=== PATIENT | male | born 1945 | race Caucasian/White ===

== ENCOUNTER 2017-01-30 08:59 | Outpatient (CLI) | payer MEDICARE, OTHER ==
[~2017-01-30] VITALS: Ht 182.9 cm; Wt 85.5 kg
[~2017-01-30 08:59] MED LIST: ADVIL200 MG PO; ALDACTONE25 MG PO; ALENDRONATE SOD70 MG PO; ASPIRIN LO-DOSE81 MG PO; CALCIUM CARBON600 MG PO; CEFPROZIL250 MG PO; CIPRO500 MG PO; COREG 3.1253.125 MG PO; CYMBALTA30 MG PO; DACOGEN50 MG IV; DELTASONE10 MG PO; DELTASONE5 MG PO; ELIQUIS2.5 MG PO; GABAPENTIN400 MG PO; HUMIBID LA (MU600 MG; HUMIBID LA (MU600 MG PO; I-CAPS WITH LU1 EACH PO; ICAPS AREDS SO1 EACH; ICAPS MV TABLE1 EACH PO; ICAPS TABLET1 EACH PO; IMDUR30 MG PO; LANOXIN (DIGI125 MCG PO; LASIX20 MG PO; LASIX40 MG PO; LIPITOR40 MG PO; LISINOPRIL2.5 MG PO; LOPRESSOR25 MG PO; MIRALAX17 GM PO; MUCINEX600 MG PO; MULTIPLE VITAM1 EACH PO; NEURONTIN100 MG; NEURONTIN400 MG PO; NORCO 5-325 TA1 EACH PO; PRAVACHOL40 MG PO; PRILOSEC20 MG PO; PROTONIX40 MG PO; PROVENTIL OR V6.7 GM INH; SYMBICORT 80-10.2 GM INH; THERAGRAN-M1 TAB PO; TOPROL XL 5050 MG PO; TYLENOL325 MG PO; ZYRTEC10 MG PO
== END 2017-01-30 17:10 | disposition disaster alternative care site (69) ==
LOC: GMIS 08:59 → GMSU 08:59 → GMIS 09:00
DX: C92.Z2 Other myeloid leukemia, in relapse (principal); D63.0 Anemia in neoplastic disease; L03.115 Cellulitis of right lower limb
CPT/HCPCS: J1200; J1642; J1940; J7050; P9040

== ENCOUNTER 2017-03-31 17:00 | Inpatient (IN) | payer MEDICARE, OTHER ==
[~2017-03-31] VITALS: Ht 182.9 cm; Wt 76.4 kg
--- NOTE | ~2017-03-31 | CON ---
PATIENT'S NAME: JANY OROPEZA [facility] AGE: 71 Y [address] ROOM: [id number] [place], [place] [address] [facility] ADMIT DATE: 03/31/2017 Consultation DISCHARGE DATE: FAMILY PHYSICIAN: Shaheen Atkinson ATTENDING PHYSICIAN: Miguel Brady REFERRING PHYSICIAN: DIOGENES CERON (GASTRO) HISTORY OF PRESENT ILLNESS: Dr. Estrada has requested that I provide an inpatient consultation on this 71- year-old male. I have specifically been asked to evaluate his complaint of left elbow pain and swelling. Difficulties with the left elbow commenced approximately 3 weeks ago when he slipped off the seat of a riding him manager and "skinned it." He states that this was a deep abrasion at the lateral aspect of his left elbow. He treated this himself and did well until the last 24 hours. The abrasion seemed to be healing well until the "scab came off" yesterday morning. Since then, his left elbow was felt progressively more "tight," swollen, tender, and warm. He states that there has been no trauma to the elbow subsequent of falling off the lawnmower 3 weeks ago. He denies distal numbness or paresthesia. He states that he had an IV in his left antecubital fossa region soon after being admitted to the hospital earlier this week. The left elbow IV became infiltrated, and his left forearm became "puffy" after that. He is presently admitted to the hospital for workup and treatment of chest pain. As per the patient's report (as well as that of his nurse), his chest pain appears to represent reflux rather than cardiac disease. The patient states that he is not presently on antibiotics (to the best of his knowledge). His nurse confirms this. ALLERGIES: ALLERGIC TO PENICILLIN. HE DENIES ANY OTHER TYPE OF ALLERGY TO MEDICINE. MEDICATIONS ON ADMISSION: 1. Prednisone. 2. Aspirin. 3. Spironolactone. 4. Eliquis. 5. Lipitor. 6. Lanoxin. 7. [place]. 8. Dacogen. 9. Cymbalta. 10. Lasix. 11. Imdur. 12. Lopressor. 13. Tylenol. PATIENT'S NAME: JANY OROPEZA [facility] AGE: 71 Y [address] ROOM: [id number] [place], [place] [address] LOCATION: [facility] ADMIT DATE: 03/31/2017 Consultation DISCHARGE DATE: FAMILY PHYSICIAN: Shaheen Atkinson ATTENDING PHYSICIAN: Miguel Brady 14. Aleve. 15. Glucophage. 16. Pennsaid. 17. Ranitidine. 18. Zaroxolyn. 19. Symbicort. 20. Nitrostat. PAST SURGICAL HISTORY: Includes right above-knee amputation. ACTIVE MEDICAL PROBLEMS: Include diabetes mellitus and peripheral vascular disease. PHYSICAL EXAMINATION: GENERAL: An alert, oriented, well-hydrated, well-nourished, pleasant, cooperative stoic gentleman, who is slightly diaphoretic. He is in no acute distress. Respiratory rate is 16. Respirations nonlabored. MUSCULOSKELETAL: Median, radial, and ulnar nerve, motor and sensory function are normal at the left hand. Radial pulse 2+. There is erythema, acute tenderness, considerable fluctuant swelling over the left olecranon. There is a 5 x 20 mm abrasion, which is healing well. This is anterior and lateral to the region of tenderness and fluctuance over the olecranon. There is no crepitation or pain with passive range of motion of the elbow. Left elbow range of motion is from a 10-degree flexion contracture to 130 degrees of flexion. Left elbow supination 70 degrees. Left elbow pronation 80 degrees. Again, there is no crepitation with range of motion of the left elbow. RADIOGRAPHS: I ordered an AP and lateral radiographs of the left elbow several hours ago. These have not yet been obtained. I am told that the x-ray electroencephalographic technician came to take the x-rays (because the nurse to whom I gave the verbal order for x-rays put the x-rays in a computer), however, the x-ray electroencephalographic technician would not take the x-rays given the fact that a verbal order for the x-rays had not been written in the chart. Thus, I have re-ordered the x-rays. However, I did not wait for the x-rays due to the fact that this appears to represent septic olecranon bursitis, and I do not wish to delay diagnosis and treatment any longer than necessary. IMPRESSION: Left elbow septic olecranon bursitis. RECOMMENDATIONS: I have discussed the etiology and natural history of this condition. I recommended and performed an aspiration. We will start empiric antibiotics. PATIENT'S NAME: JANY OROPEZA [facility] AGE: 71 Y [address] ROOM: [id number] [place] [id number] [facility] ADMIT DATE: 03/31/2017 Consultation DISCHARGE DATE: FAMILY PHYSICIAN: Physician, New ATTENDING PHYSICIAN: Miguel Brady I have informed the patient, and I strongly suspect that this represents septic olecranon bursitis. He understands that repeat aspiration may be necessary, and that incision and drainage may be necessary. I have communicated my findings and plans directly with Dr. Estrada. MD CINTHYA RAMOS/radha /[id number] CC: Mary Estrada MD d: 04/03/17 0321 t: 04/08/17 2222, CONSULTATION REPORT
--- NOTE | ~2017-03-31 | CON ---
PATIENT'S NAME: JANY OROPEZA [facility] AGE: 71 Y [address] ROOM: [address] [place], [place] [address] LOCATION: [facility]U ADMIT DATE: 03/31/2017 Consultation DISCHARGE DATE: FAMILY PHYSICIAN: Shaheen Atkinson ATTENDING PHYSICIAN: Miguel Brady DATE OF CONSULTATION: 04/06/2017 REFERRING PHYSICIAN: Dr. Estrada. REASON FOR VISIT: Left upper arm skin tear. HISTORY OF PRESENT ILLNESS: This is a pleasant 71-year-old male patient who was admitted to [facility] with chest pain. He has a history of chronic systolic congestive heart failure, atrial fibrillation, coronary artery disease, hypertension, obstructive sleep apnea, hyperlipidemia, PVD, rheumatoid arthritis, ischemic cardiomyopathy, myelodysplastic syndrome, & type 2 diabetes mellitus. He was noted to have pneumonia on admission to [facility]. The patient underwent an aspiration of his left olecranon bursa on April 02. On April 03 he had a subsequent I and D to the site by Dr. Becerra. He notes with dressing removal a skin tear to his left upper arm. Nursing covered it with Xeroform. Patient notes due to chronic steroid use he develops skin tears easily. He normally cuts socks to wear as sleeves for a protective covering. He denies pain to the site. His left elbow is currently covered with a gauze pad and Tubigrip. The patient denies fevers, chills, or sweats. He denies chest pain currently. He is to have a pacemaker placed tomorrow. He reports he normally wears compression stockings at home. He does not wear diabetic footwear. He is normally able to complete his activities of daily living at home. He is very pleasant with cares. He denies further skin issues. PAST MEDICAL HISTORY: Coronary artery disease, systolic congestive heart failure, chronic atrial fibrillation, essential hypertension, hyperlipidemia, obstructive sleep apnea, peripheral vascular disease, rheumatoid arthritis, type 2 diabetes mellitus, myelodysplastic syndrome, ischemic cardiomyopathy, and chronic hypoxic and hypercapnic respiratory failure with COPD. PAST SURGICAL HISTORY: Appendectomy, right inguinal hernia repair, back surgery, left neck neurectomy, bilateral blepharoplasty, cardiac stents, cataracts, bilateral leg stents, & right AKA. PATIENT'S NAME: JANY OROPEZA [facility] AGE: 71 Y [address] ROOM: [id number] [place], [place] [address] [facility] ADMIT DATE: 03/31/2017 Consultation DISCHARGE DATE: FAMILY PHYSICIAN: Shaheen Atkinson ATTENDING PHYSICIAN: Miguel Brady FAMILY HISTORY: Positive for MT and a stroke. SOCIAL HISTORY: The patient lives with his in [place]. His daughter works at [facility]. Patient smoked half a pack of cigarettes for 50 years, quit in January 2016. Denies alcohol use. ALLERGIES: PENICILLIN. CURRENT MEDICATIONS: Please refer to medication administration record. REVIEW OF SYSTEMS: All are negative except as mentioned above in the HPI. PHYSICAL EXAMINATION: VITAL SIGNS: Temperature 98.2, pulse 91, respirations 18, blood pressure 117/76, pulse oximetry 93%, height 6 feet even and weight 81.3 kg. GENERAL: The patient is alert and oriented x3 pleasant with care in no acute distress. HEENT: Head normocephalic, atraumatic. ABDOMEN: Soft and nontender. EXTREMITIES: Obvious right AKA. Left pedal pulse +1. +1 dependent edema. No open ulcers noted to left leg. Heel intact. SKIN: On the patient's left posterior upper forearm he has a skin tear that measures 3.5 cm width x 0.6 length x 0.1 cm depth. Part of wound is covered with skin flap. The rest of the wound bed is moist pink. Periwound is ecchymotic, but intact. Small amount of serosanguineous exudate is noted. No signs of infection. Left elbow incision is draining yellow exudate. Scabbing noted to left third digit. LABORATORY DATA: Blood cultures show no growth to date. White blood cell count 6.6, hemoglobin 9.4, hematocrit 29.1, platelets 478. Sodium 139, potassium 4.0, chloride 102, bicarbonate 30, BUN 23, creatinine 1.1, albumin 2.5, and glucose 118. ASSESSMENT AND PLAN: Again, this is a 71-year-old male patient who was admitted to [facility] with chest pain in the setting of pneumonia. Wound Care consult to evaluate and treat a left upper arm skin tear: 1. Left posterior upper arm skin tear secondary to traumatic tape removal. Wound down to dermal tissue. No signs of infection. Skin PATIENT'S NAME: JANY OROPEZA [facility] AGE: 71 Y [address] ROOM: [id number] [place] [address] [facility] AD[facility] DATE: 03/31/2017 Consultation DISCHARGE DATE: FAMILY PHYSICIAN: Physician, Shaheen ATTENDING PHYSICIAN: Miguel Brady flap intact. Applied Mepilex foam dressing to site. Patient is interested in dressing options when he gets home when he develops skin tears. I discussed preventive measures. I did order him elbow protectors that he can take home. I gave patient the Mepilex dressing wrapper and instructed him if he likes it at home he can buy them on [employer] or through [employer] in [place]. Educated his daughter Portia as well. No other significant skin issues. Dr. Becerra handling his left olecranon site. 2. Atypical chest pain. Cardiology is on board. 3. Bradycardia. The patient will be getting a pacemaker tomorrow. 4. Right lower lobe pneumonia. The patient on antibiotic therapy. I would like to thank Dr. Estrada for this consultation. SMITA RAGLAND APRN FOR MD SARAH MONTEZ/radha /[id number] d: 04/07/17 0042 t: 04/12/17 1200, CONSULTATION REPORT
--- NOTE | ~2017-03-31 | CON ---
PATIENT'S NAME: JANY OROPEZA [facility] AGE: 71 Y [address] ROOM: [place] [address] LOCATION: [facility]U ADMIT DATE: 03/31/2017 Consultation DISCHARGE DATE: FAMILY PHYSICIAN: , Shaheen ATTENDING PHYSICIAN: Miguel Brady DATE OF CONSULTATION: 04/01/2017 REFERRING PROVIDER: Dr. Dara Estrada. REASON FOR CONSULTATION: Atypical chest pain. HISTORY OF PRESENT ILLNESS: This is a very pleasant 71-year-old male with previous history of coronary artery disease and ischemic cardiomyopathy. The patient also has myelodysplastic syndrome who was transferred from [place] with refractory chest pain. The patient states over the past month, he has experienced a severe chest pain that begins in his mid epigastric area as it rises up his chest, into his mouth. He states that the pain is significant, rating at its worst at 10/10 with burning sensation. He has been worked up per Cardiology, as there is no cardiology etiology. The patient states that this has progressively worsened over the past month. He does complain of some mild dysphagia intermittently with various foods as well as some liquids. He denies any nausea, vomiting, or luciana abdominal pain. He does state that his mid epigastric area and right upper quadrant are "sore." He denies any history of upper endoscopy. He states his bowels are "slow" but "working." He did receive a GI cocktail while inpatient, as this does relieve his symptoms significantly. He denies any current shortness of breath, fever, or chills. He does complain of some reflux symptoms as well. PAST MEDICAL HISTORY: 1. Coronary artery disease, status post PCI with stents. 2. Chronic systolic congestive heart failure, ejection fraction of 20 to 25%. 3. Chronic atrial fibrillation, on long-term anticoagulation being Eliquis. 4. Essential hypertension. 5. Hyperlipidemia. 6. Obstructive sleep apnea. 7. 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 8. Peripheral vascular disease, status post right leg AKA in October 2016. 9. Rheumatoid arthritis. 10. Diabetes mellitus type 2. PATIENT'S NAME: JANY OROPEZA [facility] AGE: 71 Y [address] ROOM: [place] [address] LOCATION: [facility]PCU ADMIT DATE: 03/31/2017 Consultation DISCHARGE DATE: FAMILY PHYSICIAN: Physician, New ATTENDING PHYSICIAN: Miguel Brady 11. Myelodysplastic syndrome. SOCIAL HISTORY: He is and lives in [place]. He has a significant past medical history of smoking tobacco, 30 to 40-pack year history, but has quit over the past 20 years. He has a history of heavy alcohol use though quit 20 years ago as well. FAMILY HISTORY: The patient's mother had stroke and breast cancer. Heart disease is also prevalent on his mother's side. ALLERGIES: PENICILLIN CAUSES HIVES AND RASH. CURRENT MEDICATIONS: Please refer to the medication administration record. REVIEW OF SYSTEMS: A 10-point review of systems was completed. All were negative except for those identified in the history of present illness. PHYSICAL EXAMINATION: GENERAL: A very pleasant 71-year-old male, who appears to be in no acute distress. VITAL SIGNS: Temperature 98.1, pulse of 96, respirations of 16, blood pressure 151/74, oxygen saturations 96%. SKIN: [place], warm, and dry. No jaundice. HEENT: Head is normocephalic and atraumatic. Pupils are equal, round, and reactive to light. Sclerae are clear. Nonicteric. Oral mucosa is pink and moist. No thyromegaly. NECK: Soft and supple. CARDIOVASCULAR: Regular. Normal S1, S2. RESPIRATORY: Respirations even and unlabored. LUNGS: Clear to auscultation. ABDOMEN: Soft, round, mildly tender in the mid epigastric area as well as the right upper quadrant. No rebound, rigidity, or guarding noted. Bowel sounds positive x4 quadrants. MUSCULOSKELETAL: No muscle weakness or atrophy. EXTREMITIES: No clubbing, cyanosis, or edema. NEUROLOGICAL: Grossly nonfocal. LABS AND DIAGNOSTICS: Lactate on admission was elevated at 5.3, white blood cell count of 5.8, hemoglobin of 7.5, hematocrit of 22.9, and platelets of 312. Chemistry panel PATIENT'S NAME: JANY OROPEZA [facility] AGE: 71 Y [address] ROOM: [address] [address] LOCATION: GPCU ADMIT DATE: 03/31/2017 Consultation DISCHARGE DATE: FAMILY PHYSICIAN: Physician, New ATTENDING PHYSICIAN: Smolik,Miguel J includes a glucose of 145, BUN of 13, creatinine 0.5. Sodium 149, potassium 3.1, chloride of 119, CO2 of 21, albumin of 1.6, AST of 45, ALT of 125, alkaline phosphatase of 69, total bilirubin 0.2, Amylase of 28, lipase of 85, procalcitonin 0.37. Abdominal ultrasound is currently pending at this time. ASSESSMENT AND PLAN: Again, this is a very pleasant 71-year-old male who is admitted with atypical chest pain. The patient has been evaluated by Cardiac with a cardiac etiology being ruled out. At this time, it is recommended for the patient to undergo an upper endoscopy for further evaluation. The patient has been immunocompromised for the last 2 years, questionable if he has an opportunistic infection versus a severe esophagitis. The patient was on Eliquis at home with his last dose being 03/31/2017. Further recommendations to be given, status post upper endoscopy. Thank you for this consult. LI HEAD MD MMF/modl /[id number] d: 04/01/172055 t: 05/07/17 0847, CONSULTATION REPORT
--- NOTE | ~2017-03-31 | HP ---
PATIENT'S NAME: JANY OROPEZA [facility] AGE: 71 Y [address] ROOM: [id number] [place], [place] [address] LOCATION: GPCU ADMIT DATE: 03/31/2017 History & Physical DISCHARGE DATE: FAMILY PHYSICIAN: PHYSICIAN, UNKNOWN ATTENDING PHYSICIAN: Angelica Perez DATE OF SERVICE: CHIEF COMPLAINT: Atypical chest pain in the setting of pneumonia. HISTORY OF PRESENTING ILLNESS: This 71-year-old white male with a previous history of coronary artery disease and ischemic cardiomyopathy as well as myelodysplastic syndrome was transferred to [facility] from [place] with refractory episodes of chest pain and concerns for pneumonia. The time line is not clear. He was apparently seen and evaluated in [place] with complaints of vague upper chest and neck pain. It comes and goes, and it typically happens in the evenings. He states he feels like it is something in his esophagus. He was seen in the emergency room and diagnosed with pneumonia by chest x-ray and received some antibiotic therapy. He was subsequently hospitalized and then discharged. He returned to the emergency room with persistent chest pain, and CT angiography was negative for PE. His carbon brush maker was contacted by telephone, and it was requested that he be transferred here for definitive evaluation and management. He denies fever, chills, or sweats. He denies headaches, dizziness, or lightheadedness. He does occasionally have lightheaded episodes, but they "come and go." His chest pain is in the mid chest and radiates up into the neck. It is not associated with any nausea, and he has not been vomiting, but he does complain of some reflux symptoms. He does feel a little short of breath particularly with activity, but that is not significantly changed. He does get relief from the pain with morphine and nitroglycerin. He denies luciana abdominal pain. Stools have been sluggish but fairly regular. He voids without any difficulties. He denies numbness or tingling in his upper extremities, but does complain of pain with lab draws. ALLERGIES: PENICILLIN. ILLNESSES: 1. Coronary artery disease, status post PCI with stents. 2. Chronic systolic congestive heart failure, ejection fraction 20% to 25%. PATIENT'S NAME: JANY OROPEZA [facility] AGE: 71 Y [address] ROOM: [id number] [place], [place] [address] LOCATION: [facility] ADMIT DATE: 03/31/2017 History & Physical DISCHARGE DATE: FAMILY PHYSICIAN: PHYSICIAN, UNKNOWN ATTENDING PHYSICIAN: Angelica Perez 3. Chronic atrial fibrillation, on long-term anticoagulation with Eliquis. 4. Essential hypertension. 5. Hyperlipidemia. 6. Obstructive sleep apnea, not currently using CPAP. 7. Chronic hypoxic and hypercapnic respiratory failure with COPD. 8. Peripheral vascular disease. 9. Status post right leg AKA in October 2016. 10. Rheumatoid arthritis. 11. Diabetes mellitus type 2. 12. Myelodysplastic syndrome. CURRENT MEDICATIONS: 1. Acetaminophen 650 mg p.o. q.6 hours p.r.n. 2. Apixaban 2.5 mg p.o. b.i.d. 3. Aspirin 81 mg p.o. daily. 4. Atorvastatin 40 mg p.o. q.h.s. 5. ICaps daily. 6. Cetirizine 10 mg p.o. daily. 7. Dacogen 50 mg injection every 4 weeks. 8. Digoxin 125 mcg p.o. daily. 9. Duloxetine 30 mg p.o. q.h.s. 10. Lasix 40 mg p.o. q.a.m. and 20 mg p.o. q.p.m. 11. Gabapentin 400 mg p.o. q.h.s. 12. [place] 5/325 two tabs p.o. q.4 hours p.r.n. pain. 13. Imdur 30 mg p.o. daily p.r.n. 14. Metoprolol 25 mg p.o. t.i.d. 15. Multivitamin daily. 16. Protonix 40 mg p.o. daily. 17. Prednisone 10 mg p.o. daily and 5 mg p.o. q.h.s. 18. Spironolactone 25 mg p.o. daily. FAMILY HISTORY: Significant for stroke in his mother. Also significant for breast cancer and heart disease on his mother's side. SOCIAL HISTORY: He is and lives in [place]. He has a significant past history of smoking tobacco, 30- to 40-pack year, but he has been quit for over 20 years. He also has a history of heavy alcohol use, but he has been quit for more than 20 years. REVIEW OF SYSTEMS: As per HPI. All other organ systems reviewed and are negative. OBJECTIVE: PATIENT'S NAME: JANY OROPEZA [facility] AGE: 71 Y [address] ROOM: [id number] [place], [place] [address] [facility] ADMIT DATE: 03/31/2017 History & Physical DISCHARGE DATE: FAMILY PHYSICIAN: PHYSICIAN, UNKNOWN ATTENDING PHYSICIAN: Angelica Perez VITAL SIGNS: Temperature 97.1, pulse 73, respirations 20, blood pressure 112/63, O2 saturation 100% on room air. GENERAL: He is frail, not ill-appearing, lying in bed, in no acute distress. SKIN: Supple, pink, warm, and dry. There is an abraded area over the left elbow with a Steri-Strip in place. There is an eschar present. A little bit of hyperemia. No luciana erythema or fluctuance. No warmth. HEENT: Otherwise, normocephalic. Sclerae nonicteric. Pupils equal, round, and reactive to light and accommodation. Extraocular movements appear intact. Nasal turbinates normal in appearance. Oropharynx clear. Mucous membranes are pink and moist. NECK: Supple. Plethoric. No masses or adenopathy. No thyromegaly. No obvious JVD. CHEST: Wall is symmetrical. HEART: Bradycardic, irregular. LUNGS: Diminished at the bases but no crackles are heard. No areas of consolidation. ABDOMEN: Soft, protuberant, nontender. Bowel sounds present. No masses or hepatosplenomegaly. and RECTAL: Not done. EXTREMITIES: Display a right AKA. The stump is intact. There are no complicating features. NEUROLOGIC: Mentation is a little slowed. He is hard of hearing. There are no focal deficits. LABORATORY AND X-RAY DATA: From [place], laboratory data revealed a hemoglobin of 9. BUN and creatinine of 21 and 0.89. Troponin I was elevated at 0.528. CT angiogram showed no evidence of pulmonary embolus, a little bit of atelectasis in the right basilar segment, and prominent calcific atherosclerosis. No luciana pneumonia identified. A 12-lead EKG shows a sinus bradycardia with first-degree AV block and some Wenckebach. ASSESSMENT AND PLAN: 1. Atypical chest pain. Differential diagnosis is relatively broad. We will admit to inpatient care and trend cardiac enzymes. Dr. Menon, carbon brush maker, has already made aware of the patient's arrival here and evaluated him herself. We will monitor on telemetry and maintain anticoagulation with Eliquis. We will await cardiology's final recommendations. 2. Bradycardia, asymptomatic. He has first-degree atrioventricular block and some Wenckebach block. There are no plans for permanent pacemaker placement, but we will monitor and hold the beta david and digoxin therapy for now. He is hemodynamically stable. 3. Right lower lobe pneumonia. There is no clinical evidence of that. There was a suggestion of endocarditis, but I do not believe that blood PATIENT'S NAME: JANY OROPEZA [facility] AGE: 71 Y [address] ROOM: [place] [address] [facility] ADMIT DATE: 03/31/2017 History & Physical DISCHARGE DATE: FAMILY PHYSICIAN: PHYSICIAN, UNKNOWN ATTENDING PHYSICIAN: Angelica Perez cultures have been positive. We will try to determine whether or not blood cultures were actually done in [place]. Hold off on additional antibiotic therapy for now, but we will get repeat blood cultures here as well as lactate and procalcitonin. 4. Dyspepsia, chronic. We will try GI cocktail for quick relief. I placed him on IV PPI therapy with Protonix. Consider GI evaluation. 5. Chronic systolic congestive heart failure. Clinically, stable and adequately compensated. We will continue his home medication regimen and monitor. We will watch his fluid volume balance carefully. 6. Essential hypertension, stable. No changes for now and monitor. 7. Myelodysplastic syndrome. Currently stable on chemotherapy. Plan continued outpatient followup with Hematology-Oncology. 8. Anemia secondary to myelodysplastic syndrome. He is status post 2 units PRBC transfusion. We will follow his hemoglobin on a daily basis and re- transfuse if necessary. 9. Peripheral vascular disease, status post right [id number] amputation, clinically, stable. Encourage some restorative cares. Consider physical therapy, occupational therapy. 10. Deep venous thrombosis prophylaxis. He is fully anticoagulated with Eliquis. We will mobilize him as he is physically able. ANGELICA J MD YAHAIRA PEREZ/naveedl /[id number] D: [id number] T: [id number] HISTORY & PHYSICAL
--- NOTE | ~2017-03-31 | CON ---
PATIENT'S NAME: JANY SÁNCHEZ [facility] AGE: 71 Y [address] ROOM: [id number] [place], [place] [address] LOCATION: GPCU ADMIT DATE: 03/31/2017 Consultation DISCHARGE DATE: FAMILY PHYSICIAN: PHYSICIAN, UNKNOWN ATTENDING PHYSICIAN: Miguel Brady DATE OF CONSULTATION: 03/31/2017 REFERRING PHYSICIAN: Miguel Brady MD REASON FOR CONSULTATION: Bradycardia. HISTORY OF PRESENT ILLNESS: The patient is a 71-year-old male who is known to Cardiology team. He has been here before in the past. He was last seen in consultation in August of last year by Dr. Oliver when he had a history of severe lower extremity ischemia as well as nonhealing ulcers. He had multilevel lower extremity peripheral arterial disease and ultimately ended up having an amputation of his right lower extremity. He had history of low EF at that time, 20-25%, and he underwent cardiac cath prior to proposed surgery and basically he was found to have severe 2-vessel coronary artery disease without any targets for intervention due to diffuse disease per cath report. Mid RCA, there was 50% stenosis; ramus, no lesion; proximal circumflex, 100%; left main was normal; and distal LAD, about 20% stenosis. He had an echocardiogram again in September of 2016 where his LVEF was reported to be 35% at that time. The patient also has history of myelodysplastic syndrome and is on chemotherapy for that and needs frequent transfusions, for which he has a Port- A-Cath. He reports for the past month he has been having chest discomfort mostly at night and he reports that the Tums does help and sometimes it gets worse with a deep breath and sometimes radiates to his right arm. On the day of admission to his local ER, the patient reported that he was having severe chest pain that woke him up from his sleep, it went all the way up to his throat, it was substernal. He also had some arm pain, he had shortness of breath as well as severe pain in the chest as well as the jaw, and he reported it was worse when he took a deep breath. He was admitted with diagnosis of sepsis and possible pneumonia and on broad-spectrum antibiotics. He also mentions pain in his left elbow that is very sore and had mild abrasion to that as well. He also has history of paroxysmal atrial fibrillation/flutter for which he is on digoxin, metoprolol, and Eliquis. The patient is very comfortable during interview, does not have any chest pain at that time. En route to [facility], reportedly his heart rate was in the 40s PATIENT'S NAME: JANY SÁNCHEZ [facility] AGE: 71 Y [address] ROOM: [place] [address] LOCATION: GPCU ADMIT DATE: 03/31/2017 Consultation DISCHARGE DATE: FAMILY PHYSICIAN: PHYSICIAN, UNKNOWN ATTENDING PHYSICIAN: Miguel Brady and his blood pressure was also in the 80s or so. He was not lightheaded or dizzy. During interview, the patient is in atrial flutter with rates in the 60s. He does not have any chest pain, tightness, pressure, heaviness, jaw pain, or arm pain. He does not have any palpitations, shortness of breath, or lightheadedness. PAST MEDICAL HISTORY: 1. CAD, status post recent catheterization with diffuse disease, and not a candidate for any intervention and medical therapy was recommended. 2. Cardiomyopathy with LVEF of about 35%. 3. Peripheral vascular disease. 4. Hypertension. 5. Hyperlipidemia. 6. Paroxysmal atrial fibrillation/atrial flutter. 7. Sleep apnea. 8. COPD. PAST SURGICAL HISTORY: Left common femoral endarterectomy, 02/18/2016 and right common femoral endarterectomy with bovine pericardial patch and femoral-popliteal bypass in January 2016, followed by amputation of the right lower extremity. SH: pt quit smoking a year ago. FH; no premature CAD or SCD. MEDICATIONS: Please see MAR. REVIEW OF SYSTEMS: A 10-point review of systems was discussed with the patient. Pertinent positives and negatives mentioned in the history of presenting illness. The patient does not have any fever, chills, or cough. He does have clear sputum production that is chronic for him. No discoloration to sputum. No headaches. No changes in his strength or sensation. No changes in his speech, swallowing, or vision. PHYSICAL EXAMINATION: GENERAL: The patient is awake, alert, oriented, not in any apparent distress. VITAL SIGNS: Atrial flutter with heart rate in the 50 to 60s, blood pressure is 100/70, he is afebrile, and respirations are 16. HEENT: Sclerae are clear. Head is atraumatic and normocephalic. NECK: No JVD. HEART: S1, S2. Regular rate and rhythm. No murmurs, gallops, or rubs. CHEST: Clear to auscultation bilaterally. He has a port on the left side. ABDOMEN: Soft. Bowel sounds positive. Obese. EXTREMITIES: No significant lower extremity edema. Right lower extremity below-knee amputation. PATIENT'S NAME: JANY SÁNCHEZ [facility] AGE: 71 Y [address] ROOM: [id number] [place] [id number] LOCATION: GPCU ADMIT DATE: 03/31/2017 Consultation DISCHARGE DATE: FAMILY PHYSICIAN: PHYSICIAN, UNKNOWN ATTENDING PHYSICIAN: Miguel Brady NEURO: Grossly intact. DIAGNOSTIC DATA: EKG: Atrial flutter with rate in the 60s. No ST changes suggestive of ischemia or injury pattern. Some of the EKGs also showed sinus rhythm with first-degree AV block and intermittent Wenckebach noted, that was done yesterday at the outside hospital. Also episodes of atrial fibrillation with RVR. LABORATORY DATA: Sodium 132, potassium 4.3, BUN 28, and creatinine 1.3. AST 74, ALT 96. Troponin 0.9 and 0.96. CK-MB 4.2, total CK 39 and 43. WBC 4.6, H and H 7.3 and 22.1, and platelets are 227. Chest x-ray shows left lower lobe atelectasis from the outside hospital. IMPRESSION AND PLAN: 1. Sinus bradycardia/first-degree atrioventricular block/Wenckebach. 2. Paroxysmal atrial fibrillation and atrial flutter wtih slow ventricular and rapid ventricular response. 3. Atypical chest pain. 4. History of coronary artery disease with diffuse disease, not amenable to percutaneous coronary intervention. 5. Peripheral vascular disease, status post right lower extremity amputation. 6. Myelodysplastic syndrome. 7. Diabetes mellitus type 2. 8. Chronic obstructive pulmonary disease. PLAN: At this time given that he is on atenolol, metoprolol, and digoxin, we will hold both of those and monitor his heart rates and see how he does. I do not think there is an immediate need for any pacemaker at this time; however, he may need it if we see episodes of tachy-ellyn. At this time, his rate is in the 50s and he is hemodynamically stable and does not have any lightheadedness or dizziness. We will continue to observe him. I do think he will need to be on a small dose of metoprolol at least 12.5 b.i.d. once his heart rates improve because there was evidence of RVR on a telemetry strip noted at the outside hospital. His chest pain is quite atypical. He reports that he gets relief with Tums and also reports that it is worse with a deep breath and it goes away after he gets narcotics. In any case, he really does not have any significant targets for revascularization on recent catheterization that was done by Dr. Oliver. We will continue to optimize his medications and consider starting Ranexa; PATIENT'S NAME: JANY SÁNCHEZ [facility] AGE: 71 Y [address] ROOM: [place] [address] LOCATION: GPCU ADMIT DATE: 03/31/2017 Consultation DISCHARGE DATE: FAMILY PHYSICIAN: PHYSICIAN, UNKNOWN ATTENDING PHYSICIAN: Miguel Brady however, it would be ideal to keep his hemoglobin at least around 8 or 9 given that he has severe coronary artery lesions. At this time, we are not seeing any overt signs or symptoms of sepsis. I do not think we need to do a ARIANNA at this point. We will start with a 2D transthoracic echocardiogram to look at the valves and his EF and decide if he needs a ARIANNA. We will get blood cultures; if they are positive, then we may consider doing a ARIANNA at that point. Thank you very much for allowing us to participate in the care of Mr. Sánchez. We will continue to follow him. ELICEO STILL MD AT/modl /[id number] d: 04/01/171 t: 04/01/17 175, CONSULTATION REPORT
--- NOTE | ~2017-03-31 | OR ---
PATIENT'S NAME: JANY OROPEZA [facility] AGE: 71 Y [address] ROOM: [place] [address] LOCATION: GPCU ADMIT DATE: 03/31/2017 OR/Procedure Report DISCHARGE DATE: FAMILY PHYSICIAN: , New ATTENDING PHYSICIAN: Miguel Brady SURGEON: Noah Serrano MD TOOL ROOM ATTENDANT: DATE OF PROCEDURE: 04/02/2017 PROCEDURE PERFORMED: Esophagogastroduodenoscopy. INDICATIONS: Atypical chest pain. MEDICATIONS: Please see anesthesiology record for details. CONSENT: The risks/benefits/alternatives were discussed, and the patient or his power of senior attorney expressed understanding and agreed to proceed. Informed consent was obtained and placed in the chart. Time-out was completed prior to starting the procedure. DESCRIPTION OF PROCEDURE: The patient was placed in the left lateral decubitus position. One-lead EKG monitoring was used along with intermittent blood pressure monitoring and pulse oximetry. Bite block was placed in the patient's mouth. The above medications were given and titrated to response. Once adequate sedation was completed, the endoscope was passed through the patient's mouth into the posterior oropharynx. The endoscope was then passed into the esophagus, stomach, and duodenal bulb. The duodenum was examined through the third portion. The endoscope was then withdrawn into the stomach. In the stomach, retroflexion was completed. The scope was then straightened and withdrawn from the patient. The patient tolerated the procedure well. There were no complications. SUMMARY OF FINDINGS: 1. Normal esophagus. 2. Normal stomach. 3. Normal duodenum. ASSESSMENT AND PLAN: Atypical chest pain: I suspect the patient's symptoms are likely due to atypical manifestation of heartburn versus esophageal spasm given cardiac etiology has been ruled out. I suggest, if symptoms persist, that he pursue an outpatient esophageal manometry in [place]. Another option would be to trial empiric treatment with a calcium channel david. PATIENT'S NAME: JANY OROPEZA [facility] AGE: 71 Y [address] ROOM: [place] [address] LOCATION: GPCU ADMIT DATE: 03/31/2017 OR/Procedure Report DISCHARGE DATE: FAMILY PHYSICIAN: Physician New ATTENDING PHYSICIAN: Miguel Brady J MD FRANC HULL/modl /[id number] d: 04/02/17 1153 t: 05/07/17 0844, OPERATIVE SUMMARY
--- NOTE | ~2017-03-31 | OR ---
PATIENT'S NAME: JANY OROPEZA [facility] AGE: 71 Y [address] ROOM: [place] [address] [facility] ADMIT DATE: 03/31/2017 OR/Procedure Report DISCHARGE DATE: FAMILY PHYSICIAN: Shaheen Atkinson ATTENDING PHYSICIAN: Miguel Brady SURGEON: Diogenes Douglas MD [employer] OPERATOR: DATE OF PROCEDURE: 04/02/2017 POSTOPERATIVE DIAGNOSIS: Septic left olecranon bursitis. POSTOPERATIVE DIAGNOSIS: Septic left olecranon bursitis. PROCEDURE PERFORMED: Aspiration of left olecranon bursa. ANESTHESIA: Local. SPECIMEN: Fluid from left olecranon bursa for cell count, Gram stain, and routine culture. DESCRIPTION OF PROCEDURE: The patient was informed of the risk of iatrogenic infection. Subcutaneous tissues were infiltrated with 5 mL of 1% plain lidocaine using a 25-gauge needle. An 18-gauge needle was subsequently advanced through the anesthetized area into the olecranon bursa. 25 mL of frankly purulent white fluid was aspirated. A sterile dressing was placed. I have asked the nurse to commence clindamycin promptly. The patient tolerated this well, and there were no breaches in sterile technique. DIOGENES DOUGLAS MD JMW/modl /[id number] d: 04/03/17 0324 t: 04/08/17 2227, OPERATIVE SUMMARY
--- NOTE | ~2017-03-31 | DS ---
PATIENT'S NAME: JANY OROPEZA [facility] AGE: 71 Y [address] ROOM: [address]63[address] [place], [place] [address] LOCATION: GPCU ADMIT DATE: 03/31/2017 Discharge Summary DISCHARGE DATE: 04/08/2017 FAMILY PHYSICIAN: Shaheen Atkinson ATTENDING PHYSICIAN: Miguel Brady FINAL DIAGNOSES: 1. Atypical chest pain. 2. Paroxysmal atrial fibrillation with variable rates. 3. Tachycardia-bradycardia syndrome. 4. Olecranon septic bursitis with Staph aureus. 5. Diabetes mellitus with good control. 6. Essential hypertension. 7. Peripheral vascular disease. 8. Chronic systolic congestive heart failure. PROCEDURES: 1. He had a left olecranon bursa aspiration on April 02, [address] Becerra. 2. Left olecranon I and D on April 03 in the OR by Dr. Becerra. 3. Pacemaker placement DDD April [address] Edwards. Please see the history and physical dictated by Dr. Brady for details of admission. In short, the patient was transferred from [place] because of ongoing chest pain and AFib. LABORATORY DATA: On admission lactate was 5.3, sodium on admission was 149 at discharge 136, potassium on admission was 3.1, at discharge 4.2, BUN on admission was 13 at discharge 26, creatinine on admission was 0.5 at discharge 1.1. Liver enzymes on admission, his alkaline phosphatase was 69, AST 45, ALT 125. On admission, his troponin was mildly elevated at 0.475 and it did go down to 0.3 range, proBNP on admission was 15,077. White blood cell count on admission was 5.8, discharge 6.7, hemoglobin on admission was 7.5, prior to discharge 9.4, and platelet count on admission was 312, discharge 424. Cell count on the synovial fluid returned with 248,000 red blood cells, 229,100 white blood cells with 94% neutrophils, no crystals. Urinalysis on April 06 did not show any evidence of infection. MICROBIOLOGY DATA: Synovial fluid from the left bursa grew Staph aureus. RADIOLOGY DATA: Chest x-ray on admission for cough did not show any pneumothorax or worsening congestive heart failure. Ultrasound of the abdomen showed the gallbladder was contracted, he had normal-sized kidneys, no abnormality in the pancreas or the liver. Elbow x-ray done on the did not show any evidence of fracture. Chest x-ray after pacemaker placement did not show any evidence of a pneumothorax. PATIENT'S NAME: JANY OROPEZA [facility] AGE: 71 Y [address] ROOM: [id number] [place], [place] [address] LOCATION: GPCU ADMIT DATE: 03/31/2017 Discharge Summary DISCHARGE DATE: 04/08/2017 FAMILY PHYSICIAN: , Shaheen ATTENDING PHYSICIAN: Miguel Brady CARDIOVASCULAR DATA: Echocardiogram on admission showed that his ejection fraction was 35%-40%. He had moderately dilated left atrium and right atrium. HOSPITAL COURSE: The patient was admitted with diagnosis of atypical chest pain. He had recently undergone a significant evaluation for ischemic heart disease, cardiac enzymes were obtained, Cardiology was asked to see the patient. The patient was having episodes of sinus bradycardia with first- degree block that seemed to be associated with the beta-david. He did have underlying atrial flutter, atrial fib. The decision was made to add Ranexa and on admission an echocardiogram was obtained. He was started on sliding scale insulin for his blood sugars. Noncardiac causes of the pain were pursued and he did have a GI consult. There was concern because of his myelodysplastic syndrome and the fact that he was on chemotherapy that he may have an opportunistic infection. He was seen by Dr. Serrano who agreed and did proceed with an EGD. Please see Dr. Serrano's note for full details, but an EGD was done on April 02 and it did not show any evidence of infection. There was concern about whether the pain may be coming from esophageal spasm. The patient continued to have episodes of tachycardia and beta blockers did cause significant bradycardia. On the he did complain of pain in his left elbow. At that time on examination it was erythematous with an effusion on the left olecranon bursa with erythema extending down to the far arms and up into the biceps region. Dr. Luis F Becerra was asked to see the patient at that time. He did aspirate the elbow and he did extract purulent material which was sent to the lab. He was empirically started on clindamycin 900 mg IV. The fluid did reaccumulate and the patient did need to go back to the OR for further debridement the next day. At this time his blood sugars got quite high and decision was made to put him on Levemir and carb count NovoLog. He was also started on Florastor for GI prophylaxis given that he was on clindamycin. Cardiology at this point had decided that he needed to proceed with a pacemaker to help control his heart rate and Dr. Edwards was consulted. We did discuss and because of the ongoing infection decision was to wait for a few days before putting in the pacemaker. In the meantime, we did adjust his insulin, his NovoLog carb count to try and control his blood sugars and Orthopedics did follow along. On the he was able to undergo pacemaker placement. This was placed without any complication. The patient was felt to be stable for discharge. There was concern about his ability to get around. He was status post a right AKA and did have a stump and was exhibiting some significant weakness. Decision was made that he should go swing bed and he was accepted to the [facility]. DISCHARGE INSTRUCTIONS: Follow up with Dr. Bri Major who is his primary care provider, C-collar 3-5 days post discharge from SNF, Dr. Becerra to see him in 7 days. He is to follow diabetic diet, weightbearing as tolerated with his right prosthesis. PT/OT, Accu-Cheks q.a.c. and at bedtime. Dressing changes, daily 4 x 4, gauze to left olecranon, there were PATIENT'S NAME: JANY OROPEZA [facility] AGE: 71 Y [address] ROOM: [place] [address] LOCATION: GPCU ADMIT DATE: 03/31/2017 Discharge Summary DISCHARGE DATE: 04/08/2017 FAMILY PHYSICIAN: Shaheen Atkinson ATTENDING PHYSICIAN: Miguel Brady instructions to let Dr. Becerra know if there is any discharge. The patient was in a left sling and binder could be removed and he could shower on the . He was not to do any pulling, pushing, or lifting of greater than 10 pounds with the left upper extremity until April 22. DISCHARGE MEDICATIONS: 1. Aspirin 81 mg daily. 2. Lipitor 40 mg at bedtime. 3. Lanoxin 0.25 mg at bedtime. 4. Clindamycin 30 mg 3 times daily 14 days from the date of his surgery which would be April 17. 5. Cymbalta 30 mg at bedtime. 6. Lasix 80 mg in the morning, 20 mg at 2:00 p.m., moderate NovoLog sliding scale. NovoLog 3 units per 15 g of carbohydrates, consume 3 times daily. 7. Levemir 10 mg at bedtime. 8. Imdur 30 mg at bedtime. 9. Magnesium oxide 400 mg daily. 10. Zaroxolyn 2.5 mg on Wednesday, Wednesday, Wednesday. 11. Lopressor 50 mg twice daily. 12. Theragran-M 1 tablet daily. 13. Protonix 40 mg twice daily. 14. MiraLAX 17 g twice daily hold for loose stools. 15. Potassium 20 mEq daily. 16. Deltasone 50 mg daily through the , then 20 mg daily from April 19 to April 28, and then 10 mg twice daily starting on May 08. 17. Ranexa 50 mg twice daily. 18. Florastor 250 mg twice a day. 19. Aldactone 25 mg daily. 20. Dulera 200/5 mcg 2 puffs twice daily. 21. Tylenol 650 mg every 6 hours. 22. [place] 5/325 one to two tablets every 4 hours as needed for pain. 23. Dextrose on sliding scale insulin protocol. 24. Magic Mouthwash 30 mL every day as needed for stomatitis. 25. Glucagon 1 mg subcu for hypoglycemia. 26. Glucose 16 g p.o. for hypoglycemia. 27. Nitrostat 0.4 mg subcu every 5 minutes time x3 for his chest pain. 28. Aspercreme apply 4 times daily to the affected joint. 29. Albuterol inhaled every 4 hours as needed. 30. Eliquis 2.5 mg twice daily. 31. Dacogen 50 mg IV every 28 days. 32. ICaps twice daily. OVERALL PROGNOSIS: At discharge was fair. PATIENT'S NAME: JANY OROPEZA [facility] AGE: 71 Y [address] ROOM: [address] [address] [facility] ADMIT DATE: 03/31/2017 Discharge Summary DISCHARGE DATE: 04/08/2017 FAMILY PHYSICIAN: Physician, New ATTENDING PHYSICIAN: Miguel Brady VIRGEN DE MD LAW/modl /[id number] CC: MD Luis F Cardona MD d: 04/09/17 0046 t: 04/16/17 1920, DISCHARGE SUMMARY
--- NOTE | ~2017-03-31 | OR ---
PATIENT'S NAME: JANY SÁNCHEZ [facility] AGE: 71 Y [address] ROOM: [address] [place], [place] [address] LOCATION: GPCU ADMIT DATE: 03/31/2017 OR/Procedure Report DISCHARGE DATE: 04/08/2017 FAMILY PHYSICIAN: Shaheen Atkinson ATTENDING PHYSICIAN: Rajat Edwards SURGEON: Rajat Edwards DO LOGISTICS SPECIALIST: DATE OF PROCEDURE: 04/07/2017 PREOPERATIVE DIAGNOSES: 1. Tachy-ellyn syndrome. 2. History of atypical chest pain. 3. History of olecranon septic bursitis. POSTOPERATIVE DIAGNOSES: 1. Tachy-ellyn syndrome. 2. History of atypical chest pain. 3. History of olecranon septic bursitis. PROCEDURES PERFORMED: Placement of left subclavian vein dual-chamber permanent pacemaker. BRIEF HISTORY: Mr. Sánchez is a 71-year-old white male, who was transferred to [facility] on 03/31/2017 for atypical chest pain and atrial fibrillation. He was evaluated by Cardiology, and found to have no significant evidence of ischemic disease, but was diagnosed with a tachy-ellyn syndrome. Also, during this time period, he was felt to have swelling in his elbow, and also uncovered a history of a myelodysplastic syndrome. He was seen by GI, and a scope was performed and was negative; felt to be coming from esophageal spasm. He also had the left elbow pain and was seen by Dr. Becerra, who felt that there was some fluid in the bursa. Aspiration was performed, which showed purulence, and he was started on clindamycin. He was taken back to the OR for a debridement, and during this time that he was being treated for his tachy-ellyn syndrome, he began to have significant bradycardia with his beta-david therapy, and was felt to be in need of a permanent pacemaker. I did evaluate the patient, and felt that he needed to continue IV antibiotics for several more days prior to proceeding with a pacemaker. He did get 5 days of IV antibiotic therapy, and then was brought to the Operative Suite for his device placement. DESCRIPTION OF SURGERY: The anterior chest wall was sterilely prepped and draped in usual fashion. The 1% lidocaine was used to infiltrate the left infraclavicular space. Subclavian vein was accessed x2 and guidewire was placed under fluoroscopic guidance into the right atrium. An incision was created and a pocket was formed. Electrocautery was used for hemostasis in PATIENT'S NAME: JANY SÁNCHEZ [facility] AGE: 71 Y [address] ROOM: [address] [address] LOCATION: GPCU ADMIT DATE: 03/31/2017 OR/Procedure Report DISCHARGE DATE: 04/08/2017 FAMILY PHYSICIAN: Physician, New ATTENDING PHYSICIAN: Rajat Edwards the pocket, and the guidewires were brought through via sheath and dilator assembly and began to place our leads. We began with our right ventricular lead. It is a [employer] Ingevity MRI lead, model 7742, serial number is [id number], was placed in the right ventricular mid septum; sensing R-waves of 0.3 V at 0.5 msec with pacing impedance of 909 ohms. It was secured to the pectoral fascia, and then we placed our atrial lead, also a [employer] Ingevity lead, model 7741, serial number [id number], placed in the right atrial appendage; sensing P-waves of 5.6 with a measured threshold of 0.5 V at 0.5 msec and pacing impedance of 760 ohms. Each lead was then connected to the generator, which was [employer] ESSENTIO, model L111, serial number is [id number]. The patient was paced DDDR with a lower rate limit of 70 and upper tracking limit of 130. Leads and generator were placed into the pocket. Fluoroscopy showed good lead and generator positions. WOUND CLOSURE: The pocket was closed in a layered fashion with 2-0 Vicryl and 4-0 Monocryl. Pressure dressings were applied. CONDITION: The patient tolerated the procedure well. POSTOPERATIVE PLAN: He will be continued on IV antibiotics. DO LOTTIE PABLO/radha /[id number] CC: CHRISTA Cole MD d: 04/15/176 t: 05/21/17 1041, OPERATIVE SUMMARY
--- NOTE | ~2017-03-31 | ECHO ---
Transthoracic Echocardiography Report (TTE) Demographics Patient Name JANY OROPEZA Date of Study 04/01/2017 Patient Number [id number] Visit Number [id number] Date of 1945 Room Number G6318 Gender Male Number Age 71 year(s) Referring Caitlyn Zamora MD Quill Machine Operator Allison Whyte [facility], Physician Manny Bonilla RVT Physician Interpreting Melody Floydconstantine Discotheque Dancer Physician Supervising Ordering Manny Bonilla MD/MLP Physician MD Nurse Stress Mining Technician Conclusions Summary Technically difficult exam with suboptimal images despite use of Definity contrast. Mild concentric left ventricular hypertrophy. The estimated left ventricular ejection fraction is 35-40%. Paradoxical septal motion . The left atrium is moderately dilated. The right atrium is moderately dilated. The ascending aorta appears mildly dilated. The maximum diameter measures 3.9 cm. Procedure Type of Study TTE procedure:2D Echocardiogram, Echo with Contrast. Procedure Date Date: 04/01/2017 Start: 07:50 AM Study Location: Inpatient Portable Technical Quality: Limited visualization due to lung interference. Indications:Bradycardia and Chest pain. Appropriate Use Criteria: 9 Patient Status: Routine Contrast Medium: Definity. Amount - 5 ml HR: 65 bpm BP: 122/71 mmHg Allergies - Penicillin. M-Mode/2D Measurements LV Diastolic Dimension: 6 cm LV Systolic Dimension: 4.34 cm LV Septum Diastolic: 1.18 cm LV PW Diastolic: 1.19 cm Cardiac Output: 4.29 l/min LA Dimension: 4.7 cm LVOT: 2.3 cm LVOT VTI: 15.9 cm LV Stroke volume: 66.03 ml TDI-S': 14.5 cm/s Doppler Measurements AV Peak Velocity: 1.77 m/s MV Peak E-Wave: 1.12 m/s AV Peak Gradient: 12.53 mmHg AV Mean Gradient: 7 mmHg LVOT Peak Velocity: 0.79 m/s PV Peak Velocity: 1 m/s TR Velocity:2.02 m/s PV Peak Gradient: 3.99 mmHg TR Gradient:16.32 mmHg Estimated PASP: 31.32 mmHg Estimated RAP:15 mmHg A' Septal Velocity: 0.07 m/s Estimated RVSP: 31 mmHg A' Lateral Velocity: 0.12 m/s E' Septal Velocity: 0.04 m/s E' Lateral Velocity: 0.09 m/s Findings Left Ventricle Mild concentric left ventricular hypertrophy. Diastolic function indeterminate due to patient's arrhythmia. The left ventricle is mildly dilated . Right Ventricle Normal right ventricle structure and function. Left Atrium The left atrium is moderately dilated. Right Atrium The right atrium is moderately dilated. Dilated IVC with poor inspiratory collapse consistent with elevated RA pressure. Mitral Valve Mild mitral regurgitation by color Doppler. Aortic Valve The aortic valve is mildly sclerotic. Tricuspid Valve Mild tricuspid regurgitation by color Doppler. Pulmonic Valve Normal pulmonic valve structure and function. Pericardial Effusion No evidence of pericardial effusion. Miscellaneous The ascending aorta appears mildly dilated. The maximum diameter measures 3.9 cm. Pleural Effusion No evidence of pleural effusion. Contractility Score LV regional wall motion:(0-Non visualized 1-Normal 2-Hypokinesis 3-Akinesis 4-Dyskinesis 5-Aneurysm) Signature dtt: MAYTE LAM dtd: 04/01/17 0750 Physician Self Edit
--- NOTE | ~2017-03-31 | CON ---
PATIENT'S NAME: JANY OROPEZA [facility] AGE: 71 Y [address] ROOM: [place] [address] LOCATION: GPCU ADMIT DATE: 03/31/2017 Consultation DISCHARGE DATE: FAMILY PHYSICIAN: , Shaheen ATTENDING PHYSICIAN: Miguel Brady DATE OF CONSULTATION: 04/01/2017 REFERRING PROVIDER: Dr. Dara Estrada. REASON FOR CONSULTATION: Atypical chest pain. HISTORY OF PRESENT ILLNESS: This is a very pleasant 71-year-old male with previous history of coronary artery disease and ischemic cardiomyopathy. The patient also has myelodysplastic syndrome who was transferred from [place] with refractory chest pain. The patient states over the past month, he has experienced a severe chest pain that begins in his mid epigastric area as it rises up his chest, into his mouth. He states that the pain is significant, rating at its worst at 10/10 with burning sensation. He has been worked up per Cardiology, as there is no cardiology etiology. The patient states that this has progressively worsened over the past month. He does complain of some mild dysphagia intermittently with various foods as well as some liquids. He denies any nausea, vomiting, or luciana abdominal pain. He does state that his mid epigastric area and right upper quadrant are "sore." He denies any history of upper endoscopy. He states his bowels are "slow" but "working." He did receive a GI cocktail while inpatient, as this does relieve his symptoms significantly. He denies any current shortness of breath, fever, or chills. He does complain of some reflux symptoms as well. PAST MEDICAL HISTORY: 1. Coronary artery disease, status post PCI with stents. 2. Chronic systolic congestive heart failure, ejection fraction of 20 to 25%. 3. Chronic atrial fibrillation, on long-term anticoagulation being Eliquis. 4. Essential hypertension. 5. Hyperlipidemia. 6. Obstructive sleep apnea. 7. 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 8. Peripheral vascular disease, status post right leg AKA in October 2016. 9. Rheumatoid arthritis. 10. Diabetes mellitus type 2. PATIENT'S NAME: JANY OROPEZA [facility] AGE: 71 Y [address] ROOM: [place] [address] LOCATION: GPCU ADMIT DATE: 03/31/2017 Consultation DISCHARGE DATE: FAMILY PHYSICIAN: Physician, New ATTENDING PHYSICIAN: Miguel Brady 11. Myelodysplastic syndrome. SOCIAL HISTORY: He is and lives in [place]. He has a significant past medical history of smoking tobacco, 30 to 40-pack year history, but has quit over the past 20 years. He has a history of heavy alcohol use though quit 20 years ago as well. FAMILY HISTORY: The patient's mother had stroke and breast cancer. Heart disease is also prevalent on his mother's side. ALLERGIES: PENICILLIN CAUSES HIVES AND RASH. CURRENT MEDICATIONS: Please refer to the medication administration record. REVIEW OF SYSTEMS: A 10-point review of systems was completed. All were negative except for those identified in the history of present illness. PHYSICAL EXAMINATION: GENERAL: A very pleasant 71-year-old male, who appears to be in no acute distress. VITAL SIGNS: Temperature 98.1, pulse of 96, respirations of 16, blood pressure 151/74, oxygen saturations 96%. SKIN: [place], warm, and dry. No jaundice. HEENT: Head is normocephalic and atraumatic. Pupils are equal, round, and reactive to light. Sclerae are clear. Nonicteric. Oral mucosa is pink and moist. No thyromegaly. NECK: Soft and supple. CARDIOVASCULAR: Regular. Normal S1, S2. RESPIRATORY: Respirations even and unlabored. LUNGS: Clear to auscultation. ABDOMEN: Soft, round, mildly tender in the mid epigastric area as well as the right upper quadrant. No rebound, rigidity, or guarding noted. Bowel sounds positive x4 quadrants. MUSCULOSKELETAL: No muscle weakness or atrophy. EXTREMITIES: No clubbing, cyanosis, or edema. NEUROLOGICAL: Grossly nonfocal. LABS AND DIAGNOSTICS: Lactate on admission was elevated at 5.3, white blood cell count of 5.8, hemoglobin of 7.5, hematocrit of 22.9, and platelets of 312. Chemistry panel PATIENT'S NAME: JANY OROPEZA [facility] AGE: 71 Y [address] ROOM: [address] [address] LOCATION: GPCU ADMIT DATE: 03/31/2017 Consultation DISCHARGE DATE: FAMILY PHYSICIAN: Physician, New ATTENDING PHYSICIAN: Smolik,Miguel J includes a glucose of 145, BUN of 13, creatinine 0.5. Sodium 149, potassium 3.1, chloride of 119, CO2 of 21, albumin of 1.6, AST of 45, ALT of 125, alkaline phosphatase of 69, total bilirubin 0.2, Amylase of 28, lipase of 85, procalcitonin 0.37. Abdominal ultrasound is currently pending at this time. ASSESSMENT AND PLAN: Again, this is a very pleasant 71-year-old male who is admitted with atypical chest pain. The patient has been evaluated by Cardiac with a cardiac etiology being ruled out. At this time, it is recommended for the patient to undergo an upper endoscopy for further evaluation. The patient has been immunocompromised for the last 2 years, questionable if he has an opportunistic infection versus a severe esophagitis. The patient was on Eliquis at home with his last dose being 03/31/2017. Further recommendations to be given, status post upper endoscopy. Thank you for this consult. LI HEAD MD MMF/modl /[id number] d: 04/01/172055 t: 04/02/171121, CONSULTATION REPORT
--- NOTE | ~2017-03-31 | OR ---
PATIENT'S NAME: JANY SÁNCHEZ [facility] AGE: 71 Y [address] ROOM: [place] [address] LOCATION: GPCU ADMIT DATE: 03/31/2017 OR/Procedure Report DISCHARGE DATE: FAMILY PHYSICIAN: Shaheen Atkinson ATTENDING PHYSICIAN: Miguel Brady SURGEON: Luis F Becerra MD INSTRUCTIONAL SUPPORT SPECIALIST: DATE OF PROCEDURE: 04/03/2017 PREOPERATIVE DIAGNOSIS: Left elbow septic olecranon bursitis. POSTOPERATIVE DIAGNOSIS: Left elbow septic olecranon bursitis. PROCEDURE PERFORMED: Incision, irrigation, and debridement of the left olecranon bursa. ANESTHESIA: Propofol. ESTIMATED BLOOD LOSS: Less than 1 mL. COMPLICATIONS: None. SPECIMENS: None. INDICATION FOR PROCEDURE: Mr. Sánchez is a 71-year-old male, who presents with pain and swelling at his left olecranon bursa. Aspiration of the bursa yesterday has demonstrated Gram-positive cocci and abundant white blood cells. Risks, benefits, limitations, and alternatives to this procedure have been thoroughly reviewed. The patient was started on empiric antibiotics yesterday, but fluid has reaccumulated. We have discussed the potential need for further surgery. Informed consent granted. DESCRIPTION OF PROCEDURE: The patient positioned supine. Propofol anesthesia was administered. No tourniquet was utilized. Left upper extremity was prepped and draped with vigilant sterile technique. A 1 cm longitudinal incision was made over the central aspect of the fluctuant area at the olecranon bursa. Abundant purulent material spontaneously decompressed (approximately 30 mL). The bursa space was subsequently irrigated with several 100 mL of sterile saline containing bacitracin. Fragments of bursa tissue tangled from the orifice, and these were debrided. No residual purulent material or fluid remained. The area was lightly packed with quarter-inch iodoform gauze. A sterile dressing was applied. This consisted of ABD pads and an Jose wrap. There were no complications. PATIENT'S NAME: JANY SÁNCHEZ [facility] AGE: 71 Y [address] ROOM: [place] [address] LOCATION: GPCU ADMIT DATE: 03/31/2017 OR/Procedure Report DISCHARGE DATE: FAMILY PHYSICIAN: Physician, New ATTENDING PHYSICIAN: Miguel Brady MD CINTHYA RAMOS/modl /[id number] d: 04/03/17 2351 t: 04/08/17 2225, OPERATIVE SUMMARY
[2017-03-31] MEDS ORDERED: ALEVE220 MG PO (19:38)
[2017-03-31] MEDS ORDERED: DELTASONE20 MG PO (19:55)
[2017-03-31] MEDS ORDERED: GLUCOPHAGE1000 MG PO (19:56)
[2017-03-31] MEDS ORDERED: NEXIUM40 MG PO (19:57)
[2017-03-31] MEDS ORDERED: ACID CONTROL150 MG PO (19:57)
[2017-03-31] MEDS ORDERED: PENNSAID112 GM TOP (19:58)
[2017-03-31] MEDS ORDERED: ZAROXOLYN2.5 MG PO (19:59)
[2017-03-31] MEDS ORDERED: ALBUTEROL2.5 MG/31 INH (20:00)
[2017-03-31] MEDS ORDERED: SYMBICORT 16010.2 GM INH (20:00)
[2017-03-31] MEDS ORDERED: NITROSTAT0.4 MG PO (20:03)
[2017-04-01 04:14] LABS: ALK PHOS 69 IU/L (33-138); ALT 125 IU/L (12-78); ANION GAP 12.1 (10.0-19.0); AST 45 IU/L (10-40); BLOOD UREA NITROGEN 13 mg/dL (6-24); CHLORIDE 119 mMol/L (96-110); CO2 21 mMol/L (22-32); CREATININE 0.5 mg/dL (0.6-1.3); ESTIMATED GFR (MDRD EQUATION) > 60; POTASSIUM 3.1 mMol/L (3.7-5.1); SODIUM 149 mMol/L (135-145); TOTAL BILIRUBIN 0.2 mg/dL (0.0-1.5)
[2017-04-01 04:17] LABS: ALBUMIN 1.6 gm/dL (3.5-5.0); CALCIUM 5.6 mg/dL (8.5-10.5)
[2017-04-01 04:20] LABS: HEMATOCRIT 22.9 % (37.0-53.0); MCH 30.6 pg (27.0-34.0); MCHC 32.8 gm/dL (32.0-36.5); MCV 93.5 fl (83.0-98.0); MPV 11.3 fl (9.4-12.4); PLATELET COUNT 312 K/uL (150-450); RBC 2.45 M/uL (3.50-5.50); RDW-CV 17.7 % (11.9-14.6); WBC 5.8 K/uL (4.0-11.0)
[2017-04-01 04:21] LABS: HEMOGLOBIN 7.5 g/dL (11.0-16.0)
[2017-04-01 05:48] LABS: BANDED NEUTROPHIL # 1.3 K/uL (0.0-0.1); BANDED NEUTROPHILS % 23 %; LYMPHOCYTE # 0.6 K/uL (0.8-4.0); LYMPHOCYTE % 10 %; MONOCYTE # 1.9 K/uL (0.0-1.0); SEGMENTED NEUTROPHIL # 1.7 K/uL (1.4-9.0); SEGMENTED NEUTROPHIL % 29 %
[2017-04-02 03:37] LABS: ALBUMIN 2.5 gm/dL (3.5-5.0)
[2017-04-02 03:50] LABS: TOTAL BILIRUBIN 0.5 mg/dL (0.0-1.5)
[2017-04-02 03:54] LABS: HEMATOCRIT 27.2 % (37.0-53.0); MCH 30.6 pg (27.0-34.0); MCHC 33.1 gm/dL (32.0-36.5); MCV 92.5 fl (83.0-98.0); MPV 11.1 fl (9.4-12.4); RBC 2.94 M/uL (3.50-5.50); RDW-CV 17.4 % (11.9-14.6); WBC 5.5 K/uL (4.0-11.0)
[2017-04-02 03:55] LABS: PLATELET COUNT 404 K/uL (150-450)
[2017-04-02 05:41] LABS: ABSOLUTE NEUTROPHIL CT (ANC) 3.4 K/uL (1.4-9.0); BANDED NEUTROPHIL # 0.9 K/uL (0.0-0.1); BANDED NEUTROPHILS % 16 %; LYMPHOCYTE # 0.2 K/uL (0.8-4.0); LYMPHOCYTE % 3 %; MONOCYTE # 1.3 K/uL (0.0-1.0); SEGMENTED NEUTROPHIL # 2.5 K/uL (1.4-9.0); SEGMENTED NEUTROPHIL % 45 %
[2017-04-02 13:20] LABS: MAGNESIUM 1.8 mg/dL (1.8-2.6); POTASSIUM 3.5 mMol/L (3.7-5.1)
[2017-04-03 04:58] LABS: ALBUMIN 2.5 gm/dL (3.5-5.0); ANION GAP 11.9 (10.0-19.0); BLOOD UREA NITROGEN 17 mg/dL (6-24); CALCIUM 8.9 mg/dL (8.5-10.5); CHLORIDE 101 mMol/L (96-110); CO2 30 mMol/L (22-32); MAGNESIUM 2.1 mg/dL (1.8-2.6); PHOSPHORUS 3.7 mg/dL (2.5-4.9); POTASSIUM 3.9 mMol/L (3.7-5.1); SODIUM 139 mMol/L (135-145)
[2017-04-03 05:04] LABS: ESTIMATED GFR (MDRD EQUATION) > 60
[2017-04-03 05:07] LABS: HEMATOCRIT 28.7 % (37.0-53.0); HEMOGLOBIN 9.5 g/dL (11.0-16.0); MCH 30.5 pg (27.0-34.0); MCHC 33.1 gm/dL (32.0-36.5); MCV 92.3 fl (83.0-98.0); MPV 10.8 fl (9.4-12.4); PLATELET COUNT 437 K/uL (150-450); RBC 3.11 M/uL (3.50-5.50); WBC 4.6 K/uL (4.0-11.0)
[2017-04-03 05:42] LABS: ABSOLUTE NEUTROPHIL CT (ANC) 2.9 K/uL (1.4-9.0); BANDED NEUTROPHIL # 0.8 K/uL (0.0-0.1); BANDED NEUTROPHILS % 18 %; LYMPHOCYTE # 1.1 K/uL (0.8-4.0); LYMPHOCYTE % 23 %; MONOCYTE # 0.3 K/uL (0.0-1.0); SEGMENTED NEUTROPHIL % 44 %
[2017-04-04 03:19] LABS: ANION GAP 10.9 (10.0-19.0); BLOOD UREA NITROGEN 20 mg/dL (6-24); CALCIUM 8.5 mg/dL (8.5-10.5); CHLORIDE 102 mMol/L (96-110); CO2 31 mMol/L (22-32); ESTIMATED GFR (MDRD EQUATION) > 60; POTASSIUM 3.9 mMol/L (3.7-5.1); SODIUM 140 mMol/L (135-145)
[2017-04-05 05:46] LABS: HEMATOCRIT 29.1 % (37.0-53.0); HEMOGLOBIN 9.4 g/dL (11.0-16.0); MCH 30.4 pg (27.0-34.0); MCHC 32.3 gm/dL (32.0-36.5); MCV 94.2 fl (83.0-98.0); MPV 11.1 fl (9.4-12.4); PLATELET COUNT 478 K/uL (150-450); RBC 3.09 M/uL (3.50-5.50); RDW-CV 17.2 % (11.9-14.6); WBC 6.6 K/uL (4.0-11.0)
[2017-04-05 05:47] LABS: ALBUMIN 2.5 gm/dL (3.5-5.0); BLOOD UREA NITROGEN 23 mg/dL (6-24); CALCIUM 8.7 mg/dL (8.5-10.5); CHLORIDE 102 mMol/L (96-110); CO2 30 mMol/L (22-32); CREATININE 1.1 mg/dL (0.6-1.3); ESTIMATED GFR (MDRD EQUATION) > 60; MAGNESIUM 2.1 mg/dL (1.8-2.6); PHOSPHORUS 3.1 mg/dL (2.5-4.9); SODIUM 139 mMol/L (135-145)
[2017-04-05 06:19] LABS: ABSOLUTE NEUTROPHIL CT (ANC) 4.9 K/uL (1.4-9.0); BANDED NEUTROPHIL # 0.3 K/uL (0.0-0.1); BANDED NEUTROPHILS % 5 %; LYMPHOCYTE # 0.7 K/uL (0.8-4.0); LYMPHOCYTE % 11 %; MONOCYTE # 0.9 K/uL (0.0-1.0); SEGMENTED NEUTROPHIL # 4.6 K/uL (1.4-9.0); SEGMENTED NEUTROPHIL % 69 %
[2017-04-06 13:24] LABS: BILIRUBIN URINE NEGATIVE (NEGATIVE); BLOOD URINE NEGATIVE /UL (NEGATIVE); COLOR URINE YELLOW (YELLOW); GLUCOSE URINE NEGATIVE (NEGATIVE); KETONE URINE NEGATIVE (NEGATIVE); LEUKOCYTES URINE NEGATIVE /UL (NEGATIVE); NITRITE URINE NEGATIVE (NEGATIVE); PROTEIN URINE NEGATIVE (NEGATIVE); SPEC GRAVITY URINE 1.015 (1.003-1.035); TURBIDITY URINE CLEAR (CLEAR); UROBILINOGEN URINE NORMAL (NORMAL)
[2017-04-07 05:04] LABS: ALBUMIN 2.8 gm/dL (3.5-5.0); ANION GAP 13.2 (10.0-19.0); BLOOD UREA NITROGEN 26 mg/dL (6-24); CALCIUM 9.1 mg/dL (8.5-10.5); CHLORIDE 99 mMol/L (96-110); CO2 28 mMol/L (22-32); CREATININE 1.1 mg/dL (0.6-1.3); ESTIMATED GFR (MDRD EQUATION) > 60; PHOSPHORUS 3.7 mg/dL (2.5-4.9); POTASSIUM 4.2 mMol/L (3.7-5.1); SODIUM 136 mMol/L (135-145)
[2017-04-07 05:25] LABS: INR - (THERAPEUTIC) 1.08 (0.92-1.07); PROTIME 11.3 SECONDS (9.8-11.4)
[2017-04-08 07:09] LABS: HEMOGLOBIN 13.7 g/dL (11.0-16.0); MCHC 32.9 gm/dL (32.0-36.5); MCV 91.6 fl (83.0-98.0); PLATELET COUNT 424 K/uL (150-450); RDW-CV 18.1 % (11.9-14.6); WBC 6.7 K/uL (4.0-11.0)
[2017-04-08 07:10] LABS: MCH 30.2 pg (27.0-34.0); RBC 4.54 M/uL (3.50-5.50)
[2017-04-08 07:11] LABS: HEMATOCRIT 41.6 % (37.0-53.0)
[2017-04-08 07:47] LABS: ABSOLUTE NEUTROPHIL CT (ANC) 5.4 K/uL (1.4-9.0); BANDED NEUTROPHIL # 0.9 K/uL (0.0-0.1); BANDED NEUTROPHILS % 13 %; LYMPHOCYTE # 0.5 K/uL (0.8-4.0); LYMPHOCYTE % 7 %; MONOCYTE # 0.8 K/uL (0.0-1.0); SEGMENTED NEUTROPHIL # 4.6 K/uL (1.4-9.0); SEGMENTED NEUTROPHIL % 68 %
== END 2017-04-08 14:45 | disposition swing bed (61) | DRG 243 ==
LOC: GPCU 18:08
PROVIDERS: Internal Medicine; Thoracic Surgery (Cardiothoracic Vascular Surgery); ADMIT Family Medicine
DX: I49.5 Sick sinus syndrome (principal); I50.22 Chronic systolic (congestive) heart failure; J96.11 Chronic respiratory failure with hypoxia; I48.92 Unspecified atrial flutter; J44.9 Chronic obstructive pulmonary disease, unspecified; E11.51 Type 2 diabetes mellitus with diabetic peripheral angiopathy without gangrene; I11.0 Hypertensive heart disease with heart failure; J96.12 Chronic respiratory failure with hypercapnia; R07.89 Other chest pain; D46.9 Myelodysplastic syndrome, unspecified; B95.62 Methicillin resistant Staphylococcus aureus infection as the cause of diseases classified elsewhere; Z89.611 Acquired absence of right leg above knee; I25.10 Atherosclerotic heart disease of native coronary artery without angina pectoris; I25.5 Ischemic cardiomyopathy; Z95.5 Presence of coronary angioplasty implant and graft; I48.2 Chronic atrial fibrillation; Z79.01 Long term (current) use of anticoagulants; E78.5 Hyperlipidemia, unspecified; G47.33 Obstructive sleep apnea (adult) (pediatric); M06.9 Rheumatoid arthritis, unspecified; Z79.82 Long term (current) use of aspirin; Z79.52 Long term (current) use of systemic steroids; Z87.891 Personal history of nicotine dependence; I44.0 Atrioventricular block, first degree; Z66 Do not resuscitate; M71.122 Other infective bursitis, left elbow; M25.511 Pain in right shoulder; X58.XXXA Exposure to other specified factors, initial encounter; S41.102A Unspecified open wound of left upper arm, initial encounter; Z92.21 Personal history of antineoplastic chemotherapy
CPT/HCPCS: A9270; C1751; C1785; C1898; C8929; C9113; G0237; J1650; J2270; J3475; J3480; J7030; J7040; J7050; J7512; Q9957